=== PATIENT | male | born 1955 | race African-American/Black ===

== ENCOUNTER 2016-10-28 08:48 | Outpatient (CLI) | payer OTHER ==
[~2016-10-28 08:48] MED LIST: CYCLOPHOSPHAMIDE IV PRN; MESNA IV PRN; NORMAL SALINE 1000 ML 1,000 ML IV PRN; NORMAL SALINE IV PRN; ONDANSETRON HCL INJ/PF 4 MG/2 ML SDV IV PRN
[2016-10-28 10:36] VITALS: BP 142/70
[2016-10-28] MEDS ORDERED: HEPARIN SOD (PORCINE) 1,000 UNIT/ML 10 ML VIAL IV PRN (13:15)
== END 2016-10-28 17:58 | disposition home or self-care (01) ==
LOC: II 08:48 → 5TH 08:55 → II 17:58
PROVIDERS: ATTEND Internal Medicine Nephrology
PROC: 3E04305 Introduction of Other Antineoplastic into Central Vein, Percutaneous Approach (ICD-10-PCS; principal; 2016-10-28)
PROC: 3E0437Z Introduction of Electrolytic and Water Balance Substance into Central Vein, Percutaneous Approach (ICD-10-PCS; 2016-10-28)
DX: I77.89 Other specified disorders of arteries and arterioles (principal)
CPT/HCPCS: 96413; 96417; 96361; J9070; J1644; J9209; J7050; 96360; 96415

== ENCOUNTER 2016-12-04 07:52 | Outpatient (CLI) | payer OTHER ==
[2016-12-04] MEDS ORDERED: NORMAL SALINE IV PRN ×3 (08:08→08:14)
[2016-12-04] MEDS ORDERED: CYCLOPHOSPHAMIDE IV PRN (08:08)
[2016-12-04] MEDS ORDERED: MESNA IV PRN ×2 (08:12→08:14)
[2016-12-04] MEDS ORDERED: NORMAL SALINE 1000 ML 1,000 ML IV PRN (08:17)
[2016-12-04 08:21] VITALS: BP 127/68
[2016-12-04] MEDS ORDERED: ONDANSETRON HCL INJ/PF 4 MG/2 ML SDV IV PRN (08:27)
[2016-12-04] MEDS ORDERED: HEPARIN SOD (PORCINE) 1,000 UNIT/ML 10 ML VIAL IV PRN ×2 (08:35→08:36)
== END 2016-12-04 15:29 | disposition home or self-care (01) ==
LOC: 5TH 07:52 → II 07:52
PROVIDERS: ATTEND Internal Medicine Nephrology
PROC: 3E0437Z Introduction of Electrolytic and Water Balance Substance into Central Vein, Percutaneous Approach (ICD-10-PCS; principal; 2016-12-04)
PROC: 3E043GC Introduction of Other Therapeutic Substance into Central Vein, Percutaneous Approach (ICD-10-PCS; 2016-12-04)
PROC: 3E043GC Introduction of Other Therapeutic Substance into Central Vein, Percutaneous Approach (ICD-10-PCS; 2016-12-04)
PROC: 3E04305 Introduction of Other Antineoplastic into Central Vein, Percutaneous Approach (ICD-10-PCS; 2016-12-04)
DX: I77.6 Arteritis, unspecified (principal)
CPT/HCPCS: 96413; 96367; 96375; 96361; J9070; J1644; J9209; J2405; J7050; 96360; 96415

== ENCOUNTER → 2016-12-21 | Outpatient (CLI) | payer OTHER ==
--- NOTE | 2016-12-21 19:20 | XCELERA REPORT ---
[address] [address] Transthoracic Echocardiogram Report Name: TEETEE TOUSSAINT Age: 61 yrs Gender: Male : 1955 Patient Status: Outpatient Patient Location: Study Date: 12/21/2016 01:02 PM Height: 74 in Weight: 232 lb BSA: 2.3 m2 Reason For Study: CAD I25.10 Ordering Physician: YANNICK MORALES Performed By: Vinnie Yin Interpretation Summary MIn posterior pericardial effusion. aortic valve sclerosis, no , no AR, Mitral vlave leaflet thickened, no MS, mild MR and no LA enlargement. LVH concentric hypertrophy mild. LVEF 50 low normal, mild LV enlargement, stage I LV diastolic dysfunction.Diffuse hypokinesis except for post wall. No granulomas RV normal, mild TR with no pulm hypertension, RVSP26. MMode/2D Measurements \T\ Calculations RVDd: 3.2 cm LVIDd: 5.8 cm FS: 24.0 % Ao root diam: 3.1 cm IVSd: 1.2 cm LVIDs: 4.4 cm EDV(Teich): 163.8 ml LVPWd: 1.2 cm ESV(Teich): 86.7 ml Ao root area: 7.4 cm2 EF(Teich): 47.1 % LA dimension: 3.6 cm Doppler Measurements \T\ Calculations MV E max josey: MV P1/2t max josey: Ao V2 max: LV V1 max P.6 cm/sec 36.4 cm/sec 110.1 cm/sec 1.6 mmHg MV A max josey: MV P1/2t: 46.2 msec Ao max PG: LV V1 max: 48.0 cm/sec 4.9 mmHg 63.5 cm/sec MV E/A: 0.76 MVA(P1/2t): 4.8 cm2 MV dec slope: 230.4 cm/sec2 MV dec time: 0.17 sec PA V2 max: TR max josey: RAP systole: 70.6 cm/sec 202.2 cm/sec 10.0 mmHg PA max PG: TR max P.4 mmHg 2.0 mmHg RVSP(TR): 26.4 mmHg Left Ventricle The left ventricle is mildly dilated. There is mild concentric left ventricular hypertrophy. Left ventricular systolic function is low normal. The Ejection Fraction estimate is 50-55%. Doppler measurements suggest impaired left ventricular relaxation, which is associated with grade I/IV or mild diastolic dysfunction. There is mild to moderate global hypokinesis of the left ventricle. There is no thrombus. Right Ventricle The right ventricle is normal in size, thickness and function. Atria The right atrium is normal. The left atrial size is normal. The interatrial septum is intact with no evidence for an atrial septal defect. Mitral Valve The mitral valve leaflets are sclerotic and show some degree of functional abnormality. There is no mitral annular calcification. There is no evidence of mitral valve prolapse. There is no vegetation seen on the mitral valve. There is no mitral valve stenosis. There is a mild amount of mitral regurgitation. The mitral regurgitant jet is eccentrically directed. Aortic Valve The aortic valve opens well. The aortic valve is sclerotic and shows some degree of functional abnormality. The aortic valve is trileaflet. There is no aortic valvular vegetation. There is no aortic valve stenosis. No aortic regurgitation is present. Tricuspid Valve There is a trace to mild amount of tricuspid regurgitation. Right ventricular systolic pressure is normal. Pulmonic Valve The pulmonic valve is normal in structure and function. There is a trace or physiologic amount of pulmonic regurgitation. Great Vessels There is aortic root sclerosis/calcification. The aortic root is normal size. Effusions Minimal pericardial effusion. I WMSI = 1.81 % Normal = 19 Segments Size X - Cannot 1 - Normal 2 - 3 - Akinetic4 - 1-2 small Interpret Hypokinetic Dyskinetic 3-5 moderate 5 - 6-14 large Aneurysmal 15-16 diffuse : YANNICK MORALES > Yannick Morales
== END ==
LOC: SP 12:50
PROVIDERS: ATTEND Internal Medicine Cardiovascular Disease
DX: I25.10 Atherosclerotic heart disease of native coronary artery without angina pectoris (principal)
CPT/HCPCS: 93306

== ENCOUNTER 2016-12-30 08:15 | Outpatient (CLI) | payer MEDICARE, OTHER ==
[~2016-12-30 08:15] MED LIST changes: +HEPARIN SOD (PORCINE) 1,000 UNIT/ML 10 ML VIAL IV PRN; -NORMAL SALINE 1000 ML 1,000 ML IV PRN
[2016-12-30 09:11] VITALS: BP 117/68
[2016-12-30] MEDS ORDERED: NORMAL SALINE 1000 ML 1,000 ML IV PRN (09:26)
== END 2016-12-30 16:17 | disposition home or self-care (01) ==
LOC: II 08:15 → 5TH 08:17 → II 16:17
PROVIDERS: ATTEND Internal Medicine Nephrology
PROC: 3E04305 Introduction of Other Antineoplastic into Central Vein, Percutaneous Approach (ICD-10-PCS; principal; 2016-12-30)
PROC: 3E043GC Introduction of Other Therapeutic Substance into Central Vein, Percutaneous Approach (ICD-10-PCS; 2016-12-30)
PROC: 3E0437Z Introduction of Electrolytic and Water Balance Substance into Central Vein, Percutaneous Approach (ICD-10-PCS; 2016-12-30)
DX: I77.6 Arteritis, unspecified (principal)
CPT/HCPCS: 96413; 96367; 96361; J9070; J1644; J9209; J7050; 96360; 96375; 96415

== ENCOUNTER → 2017-01-25 | Outpatient (CLI) | payer MEDICARE, OTHER ==
[2017-01-25 13:26] LABS: ALANINE AMINOTRANSFERASE 24 U/L (21-72); ALBUMIN 3.8 g/dL (3.5-5.0); ALKALINE PHOSPHATASE 65 U/L (38-126); ASPARTATE AMINO TRANSFERASE 15 U/L (17-59); BILIRUBIN,DIRECT 0.2 mg/dL (0.0-0.4); BILIRUBIN,TOTAL 0.7 mg/dL (0.2-1.3); CHOLESTEROL 167.15 mg/dL (0-200); Direct HDL 43 mg/dL (>40); TOTAL PROTEIN 6.1 g/dL (6.3-8.2); TRIGLYCERIDES 191 mg/dL (<150)
[2017-01-25 13:40] LABS: DIRECT LDL 69 mg/dL (<100)
[2017-01-25 13:42] LABS: VLDL CHOLESTEROL 38.2 mg/dL (10-31)
== END ==
LOC: OD 11:31
PROVIDERS: ATTEND Internal Medicine Cardiovascular Disease
DX: E78.2 Mixed hyperlipidemia (principal); Z79.899 Other long term (current) drug therapy
CPT/HCPCS: 36415; 80061; 80076; 84443

== ENCOUNTER 2017-01-27 08:14 | Outpatient (CLI) | payer MEDICARE, OTHER ==
[~2017-01-27 08:14] MED LIST changes: -HEPARIN SOD (PORCINE) 1,000 UNIT/ML 10 ML VIAL IV PRN; +NORMAL SALINE 1000 ML 1,000 ML IV PRN
[2017-01-27] MEDS ORDERED: HEPARIN SOD (PORCINE) 1,000 UNIT/ML 10 ML VIAL INJ PRN ×3 (08:49→14:43)
[2017-01-27 08:56] VITALS: BP 134/69
== END 2017-01-27 17:00 | disposition home or self-care (01) ==
LOC: II 08:14 → 5TH 08:18 → II 17:00
PROVIDERS: ATTEND Internal Medicine Nephrology
PROC: 3E033GC Introduction of Other Therapeutic Substance into Peripheral Vein, Percutaneous Approach (ICD-10-PCS; principal; 2017-01-27)
PROC: 3E0337Z Introduction of Electrolytic and Water Balance Substance into Peripheral Vein, Percutaneous Approach (ICD-10-PCS; 2017-01-27)
PROC: 3E03305 Introduction of Other Antineoplastic into Peripheral Vein, Percutaneous Approach (ICD-10-PCS; 2017-01-27)
DX: I77.6 Arteritis, unspecified (principal)
CPT/HCPCS: 96413; 96367; 96361; J9070; J1644; J9209; J7050; 96360; 96375; 96415

== ENCOUNTER → 2017-04-09 | Outpatient (CLI) | payer MEDICARE, OTHER ==
[2017-04-09 10:36] LABS: ANION GAP 12 (5-19); BLOOD UREA NITROGEN 43 mg/dL (7-20); CALCIUM 9.7 mg/dL (8.4-10.2); CARBON DIOXIDE 22 mmol/L (22-30); CHLORIDE 107 mmol/L (98-107); CREATININE RESULT 3.47 mg/dL (0.52-1.25); GLUCOSE 86 mg/dL (75-110); POTASSIUM 5.5 mmol/L (3.6-5.0); SODIUM 141.3 mmol/L (137-145)
== END ==
LOC: OD 08:38
PROVIDERS: ATTEND Internal Medicine Nephrology
DX: N18.6 End stage renal disease (principal)
CPT/HCPCS: 36415; 80048

== ENCOUNTER → 2017-04-12 | Outpatient (CLI) | payer MEDICARE, OTHER ==
[2017-04-12 10:25] LABS: ANION GAP 14 (5-19); BLOOD UREA NITROGEN 47 mg/dL (7-20); CALCIUM 9.8 mg/dL (8.4-10.2); CARBON DIOXIDE 21 mmol/L (22-30); CHLORIDE 108 mmol/L (98-107); CREATININE RESULT 2.86 mg/dL (0.52-1.25); GLUCOSE 87 mg/dL (75-110); SODIUM 143.3 mmol/L (137-145)
== END ==
LOC: OD 09:03
PROVIDERS: ATTEND Internal Medicine Nephrology
DX: N18.6 End stage renal disease (principal)
CPT/HCPCS: 36415; 80048

== ENCOUNTER → 2017-04-14 | Outpatient (CLI) | payer MEDICARE, OTHER ==
[2017-04-14 09:24] LABS: ANION GAP 13 (5-19); BLOOD UREA NITROGEN 51 mg/dL (7-20); CALCIUM 9.8 mg/dL (8.4-10.2); CARBON DIOXIDE 22 mmol/L (22-30); CHLORIDE 108 mmol/L (98-107); CREATININE RESULT 3.28 mg/dL (0.52-1.25); GLUCOSE 96 mg/dL (75-110); SODIUM 143.2 mmol/L (137-145)
== END ==
LOC: OD 07:58
PROVIDERS: ATTEND Internal Medicine Nephrology
DX: N18.6 End stage renal disease (principal)
CPT/HCPCS: 36415; 80048

== ENCOUNTER → 2017-04-21 | Outpatient (CLI) | payer MEDICARE, OTHER ==
[2017-04-21 14:14] LABS: ABSOLUTE LYMPHOCYTES (AUTO) 0.6 10^3/uL (0.5-4.7); ABSOLUTE MONOCYTES (AUTO) 0.5 10^3/uL (0.1-1.4); ABSOLUTE NEUT (AUTO) 3.8 10^3/uL (1.7-8.2); BASOPHILS % (AUTO) 0.8 % (0-2); EOSINOPHILS % (AUTO) 0.8 % (0-6); HEMATOCRIT 36.4 % (37.9-51.0); HEMOGLOBIN 11.6 g/dL (13.5-17.0); HGB HCT DIFFERENCE -1.6; LYMPHOCYTES % (AUTO) 11.5 % (13-45); MEAN CORPUSCULAR VOLUME 91 fl (80-97); MONOCYTES % (AUTO) 9.6 % (3-13); RED BLOOD COUNT 4.02 10^6/uL (4.35-5.55); RED CELL DISTRIBUTION WIDTH 15.5 % (11.5-14.0); SEGMENTED NEUTROPHILS % (AUTO) 77.3 % (42-78); WHITE BLOOD COUNT 4.9 10^3/uL (4.0-10.5)
[2017-04-21 14:27] LABS: URINE CREATININE 128.6 mg/dL (22-328); URINE PROTEIN 40.2 mg/dL (<12)
[2017-04-21 14:34] LABS: ANION GAP 12 (5-19); BLOOD UREA NITROGEN 35 mg/dL (7-20); CALCIUM 9.7 mg/dL (8.4-10.2); CARBON DIOXIDE 24 mmol/L (22-30); CHLORIDE 109 mmol/L (98-107); CREATININE RESULT 2.42 mg/dL (0.52-1.25); GLUCOSE 85 mg/dL (75-110); PHOSPHORUS 4.6 mg/dL (2.5-4.5); POTASSIUM 4.4 mmol/L (3.6-5.0); SODIUM 144.9 mmol/L (137-145)
[2017-04-21 14:41] LABS: APPEARANCE,URINE CLEAR; BILIRUBIN,URINE NEGATIVE (NEGATIVE); GLUCOSE, URINE NEGATIVE (NEGATIVE); KETONES,URINE NEGATIVE (NEGATIVE); LEUKOCYTE ESTERASE,URINE NEGATIVE (NEGATIVE); NITRITE,URINE NEGATIVE (NEGATIVE); PROTEIN,URINE 30 mg/dL (NEGATIVE); URINE SPECIFIC GRAVITY 1.009; UROBILINOGEN,URINE NEGATIVE mg/dL (<2.0)
== END ==
LOC: OD 12:40
PROVIDERS: ATTEND Internal Medicine Nephrology
DX: I12.9 Hypertensive chronic kidney disease with stage 1 through stage 4 chronic kidney disease, or unspecified chronic kidney disease (principal); N18.4 Chronic kidney disease, stage 4 (severe); E83.39 Other disorders of phosphorus metabolism
CPT/HCPCS: 36415; 80048; 81001; 82570; 84100; 84156; 85025

== ENCOUNTER → 2017-05-05 | Outpatient (CLI) | payer MEDICARE, OTHER ==
[2017-05-05 09:10] LABS: ABSOLUTE EOSINOPHILS # (AUTO) 0.1 10^3/uL (0.0-0.6); ABSOLUTE LYMPHOCYTES (AUTO) 0.6 10^3/uL (0.5-4.7); ABSOLUTE MONOCYTES (AUTO) 0.6 10^3/uL (0.1-1.4); ABSOLUTE NEUT (AUTO) 4.4 10^3/uL (1.7-8.2); BASOPHILS % (AUTO) 0.4 % (0-2); EOSINOPHILS % (AUTO) 0.9 % (0-6); HEMATOCRIT 34.8 % (37.9-51.0); HEMOGLOBIN 11.2 g/dL (13.5-17.0); HGB HCT DIFFERENCE -1.2; LYMPHOCYTES % (AUTO) 10.7 % (13-45); MEAN CORPUSCULAR HEMOGLOBIN 28.7 pg (27.0-33.4); MEAN CORPUSCULAR HGB CONC 32.1 g/dL (32.0-36.0); MEAN CORPUSCULAR VOLUME 90 fl (80-97); RED BLOOD COUNT 3.88 10^6/uL (4.35-5.55); RED CELL DISTRIBUTION WIDTH 15.5 % (11.5-14.0); WHITE BLOOD COUNT 5.6 10^3/uL (4.0-10.5)
[2017-05-05 09:34] LABS: ANION GAP 13 (5-19); BLOOD UREA NITROGEN 30 mg/dL (7-20); CALCIUM 8.7 mg/dL (8.4-10.2); CARBON DIOXIDE 23 mmol/L (22-30); CHLORIDE 110 mmol/L (98-107); CREATININE RESULT 2.23 mg/dL (0.52-1.25); GLUCOSE 85 mg/dL (75-110); POTASSIUM 3.7 mmol/L (3.6-5.0); SODIUM 145.5 mmol/L (137-145)
== END ==
LOC: OD 08:18
PROVIDERS: ATTEND Internal Medicine Nephrology
DX: N18.4 Chronic kidney disease, stage 4 (severe) (principal); D63.8 Anemia in other chronic diseases classified elsewhere
CPT/HCPCS: 36415; 80048; 85025

== ENCOUNTER → 2017-06-11 | Outpatient (CLI) | payer MEDICARE, OTHER ==
[2017-06-11 09:20] LABS: ABSOLUTE EOSINOPHILS # (AUTO) 0.1 10^3/uL (0.0-0.6); ABSOLUTE LYMPHOCYTES (AUTO) 0.7 10^3/uL (0.5-4.7); ABSOLUTE MONOCYTES (AUTO) 0.5 10^3/uL (0.1-1.4); BASOPHILS % (AUTO) 0.8 % (0-2); EOSINOPHILS % (AUTO) 1.9 % (0-6); HEMATOCRIT 32.3 % (37.9-51.0); HEMOGLOBIN 10.9 g/dL (13.5-17.0); HGB HCT DIFFERENCE 0.4; LYMPHOCYTES % (AUTO) 15.6 % (13-45); MEAN CORPUSCULAR HEMOGLOBIN 28.8 pg (27.0-33.4); MEAN CORPUSCULAR HGB CONC 33.7 g/dL (32.0-36.0); MEAN CORPUSCULAR VOLUME 86 fl (80-97); MONOCYTES % (AUTO) 11.8 % (3-13); RED BLOOD COUNT 3.77 10^6/uL (4.35-5.55); RED CELL DISTRIBUTION WIDTH 14.9 % (11.5-14.0); SEGMENTED NEUTROPHILS % (AUTO) 69.9 % (42-78); WHITE BLOOD COUNT 4.3 10^3/uL (4.0-10.5)
[2017-06-11 09:21] LABS: APPEARANCE,URINE CLEAR; BILIRUBIN,URINE NEGATIVE (NEGATIVE); GLUCOSE, URINE NEGATIVE (NEGATIVE); KETONES,URINE NEGATIVE (NEGATIVE); LEUKOCYTE ESTERASE,URINE NEGATIVE (NEGATIVE); NITRITE,URINE NEGATIVE (NEGATIVE); PROTEIN,URINE 30 mg/dL (NEGATIVE); URINE SPECIFIC GRAVITY 1.006; UROBILINOGEN,URINE NEGATIVE mg/dL (<2.0)
[2017-06-11 09:44] LABS: ALBUMIN 3.9 g/dL (3.5-5.0); ANION GAP 12 (5-19); BLOOD UREA NITROGEN 36 mg/dL (7-20); CALCIUM 9.5 mg/dL (8.4-10.2); CARBON DIOXIDE 24 mmol/L (22-30); CHLORIDE 107 mmol/L (98-107); CREATININE RESULT 2.93 mg/dL (0.52-1.25); GLUCOSE 90 mg/dL (75-110); PHOSPHORUS 4.4 mg/dL (2.5-4.5); POTASSIUM 3.9 mmol/L (3.6-5.0)
[2017-06-11 09:57] LABS: URINE CREATININE 62.2 mg/dL (22-328); URINE PROTEIN 46.3 mg/dL (<12)
[2017-06-12 08:42] LABS: PTH INTACT 118 pg/mL (15-65)
[2017-06-12 08:49] LABS: VITAMIN D 25-HYDROXY 24.8 ng/mL (30.0-100.0)
[2017-06-15 18:37] LABS: ANTIPROTEINASE 3 (PR-3) AB <3.5 U/mL (0.0-3.5); CYTOPLASMIC (C-ANCA) <1:20 titer (Neg:<1:20)
== END ==
LOC: OD 07:53
PROVIDERS: ATTEND Internal Medicine Nephrology
DX: I77.6 Arteritis, unspecified (principal); N18.4 Chronic kidney disease, stage 4 (severe); D63.1 Anemia in chronic kidney disease; E83.39 Other disorders of phosphorus metabolism
CPT/HCPCS: 36415; 80048; 81001; 82040; 82306; 82570; 83516; 83970; 84100; 84156; 85025; 86256

== ENCOUNTER → 2017-08-16 | Outpatient (CLI) | payer MEDICARE, OTHER ==
[2017-08-16 10:59] LABS: ABSOLUTE EOSINOPHILS # (AUTO) 0.1 10^3/uL (0.0-0.6); ABSOLUTE LYMPHOCYTES (AUTO) 0.7 10^3/uL (0.5-4.7); ABSOLUTE MONOCYTES (AUTO) 0.6 10^3/uL (0.1-1.4); ABSOLUTE NEUT (AUTO) 3.2 10^3/uL (1.7-8.2); BASOPHILS % (AUTO) 0.9 % (0-2); EOSINOPHILS % (AUTO) 2.6 % (0-6); HEMATOCRIT 29.3 % (37.9-51.0); HEMOGLOBIN 10.1 g/dL (13.5-17.0); LYMPHOCYTES % (AUTO) 14.3 % (13-45); MEAN CORPUSCULAR HEMOGLOBIN 28.9 pg (27.0-33.4); MEAN CORPUSCULAR HGB CONC 34.6 g/dL (32.0-36.0); MEAN CORPUSCULAR VOLUME 83 fl (80-97); MONOCYTES % (AUTO) 12.1 % (3-13); RED BLOOD COUNT 3.51 10^6/uL (4.35-5.55); RED CELL DISTRIBUTION WIDTH 15.7 % (11.5-14.0); SEGMENTED NEUTROPHILS % (AUTO) 70.1 % (42-78); WHITE BLOOD COUNT 4.6 10^3/uL (4.0-10.5)
[2017-08-16 11:21] LABS: ANION GAP 12 (5-19); BLOOD UREA NITROGEN 24 mg/dL (7-20); CALCIUM 9.5 mg/dL (8.4-10.2); CARBON DIOXIDE 27 mmol/L (22-30); CHLORIDE 107 mmol/L (98-107); CREATININE RESULT 2.66 mg/dL (0.52-1.25); GLUCOSE 93 mg/dL (75-110); POTASSIUM 4.4 mmol/L (3.6-5.0); SODIUM 146.4 mmol/L (137-145)
[2017-08-16 11:36] LABS: APPEARANCE,URINE CLEAR; BILIRUBIN,URINE NEGATIVE (NEGATIVE); GLUCOSE, URINE NEGATIVE (NEGATIVE); KETONES,URINE NEGATIVE (NEGATIVE); LEUKOCYTE ESTERASE,URINE NEGATIVE (NEGATIVE); NITRITE,URINE NEGATIVE (NEGATIVE); PROTEIN,URINE 30 mg/dL (NEGATIVE); URINE SPECIFIC GRAVITY 1.008; UROBILINOGEN,URINE NEGATIVE mg/dL (<2.0)
[2017-08-16 11:47] LABS: URINE CREATININE 101.7 mg/dL (22-328); URINE PROTEIN 49.1 mg/dL (<12)
[2017-08-17 07:43] LABS: VITAMIN D 25-HYDROXY 43.4 ng/mL (30.0-100.0)
== END ==
LOC: OD 09:52
PROVIDERS: ATTEND Internal Medicine Nephrology
DX: N05.9 Unspecified nephritic syndrome with unspecified morphologic changes (principal); N18.4 Chronic kidney disease, stage 4 (severe); D63.8 Anemia in other chronic diseases classified elsewhere; E55.9 Vitamin D deficiency, unspecified; N25.81 Secondary hyperparathyroidism of renal origin
CPT/HCPCS: 36415; 80048; 81001; 82306; 82570; 82728; 83540; 83550; 83970; 84156; 85025

== ENCOUNTER → 2017-11-19 | Outpatient (CLI) | payer MEDICARE, OTHER ==
[2017-11-19 12:11] LABS: ABSOLUTE BASOPHILS # (AUTO) 0.1 10^3/uL (0.0-0.2); ABSOLUTE EOSINOPHILS # (AUTO) 0.1 10^3/uL (0.0-0.6); ABSOLUTE LYMPHOCYTES (AUTO) 0.8 10^3/uL (0.5-4.7); ABSOLUTE MONOCYTES (AUTO) 0.7 10^3/uL (0.1-1.4); ABSOLUTE NEUT (AUTO) 3.8 10^3/uL (1.7-8.2); EOSINOPHILS % (AUTO) 1.9 % (0-6); HEMATOCRIT 33.3 % (37.9-51.0); HEMOGLOBIN 11.1 g/dL (13.5-17.0); LYMPHOCYTES % (AUTO) 15.2 % (13-45); MEAN CORPUSCULAR HEMOGLOBIN 28.6 pg (27.0-33.4); MEAN CORPUSCULAR HGB CONC 33.4 g/dL (32.0-36.0); MEAN CORPUSCULAR VOLUME 86 fl (80-97); MONOCYTES % (AUTO) 12.3 % (3-13); PLATELET COUNT 202 10^3/uL (150-450); RED BLOOD COUNT 3.88 10^6/uL (4.35-5.55); RED CELL DISTRIBUTION WIDTH 15.6 % (11.5-14.0); SEGMENTED NEUTROPHILS % (AUTO) 69.6 % (42-78); TOTAL CELLS COUNTED % (AUTO) 100 %; WHITE BLOOD COUNT 5.5 10^3/uL (4.0-10.5)
[2017-11-19 12:28] LABS: APPEARANCE,URINE CLEAR; BILIRUBIN,URINE NEGATIVE (NEGATIVE); COLOR,URINE STRAW; GLUCOSE, URINE NEGATIVE (NEGATIVE); KETONES,URINE NEGATIVE (NEGATIVE); LEUKOCYTE ESTERASE,URINE NEGATIVE (NEGATIVE); NITRITE,URINE NEGATIVE (NEGATIVE); PROTEIN,URINE NEGATIVE (NEGATIVE); URINE SPECIFIC GRAVITY 1.009; UROBILINOGEN,URINE NEGATIVE mg/dL (<2.0)
[2017-11-19 12:40] LABS: ANION GAP 15 (5-19); BLOOD UREA NITROGEN 51 mg/dL (7-20); CALCIUM 10.6 mg/dL (8.4-10.2); CARBON DIOXIDE 24 mmol/L (22-30); CHLORIDE 107 mmol/L (98-107); GLUCOSE 97 mg/dL (75-110); POTASSIUM 4.8 mmol/L (3.6-5.0); SODIUM 145.9 mmol/L (137-145); URIC ACID 12.7 mg/dL (3.5-8.5)
[2017-11-19 12:49] LABS: UR PRO/CREAT RATIO RESULT 0.4 mg/mg (0.0-0.2); URINE CREATININE 72.4 mg/dL (22-328); URINE PROTEIN 32.2 mg/dL (<12)
== END ==
LOC: OD 11:14
PROVIDERS: ATTEND Internal Medicine Nephrology
DX: N18.3 Chronic kidney disease, stage 3 (moderate) (principal); R80.9 Proteinuria, unspecified; D63.8 Anemia in other chronic diseases classified elsewhere; M10.9 Gout, unspecified
CPT/HCPCS: 36415; 80048; 81001; 82570; 84156; 84550; 85025

== ENCOUNTER → 2018-01-25 | Outpatient (CLI) | payer MEDICARE, OTHER ==
[2018-01-25 13:57] LABS: ALANINE AMINOTRANSFERASE 57 U/L (21-72); ALBUMIN 4.4 g/dL (3.5-5.0); ALKALINE PHOSPHATASE 89 U/L (38-126); ASPARTATE AMINO TRANSFERASE 52 U/L (17-59); BILIRUBIN,DIRECT 0.7 mg/dL (0.0-0.4); BILIRUBIN,TOTAL 0.8 mg/dL (0.2-1.3); CHOLESTEROL 125.45 mg/dL (0-200); TOTAL PROTEIN 8.5 g/dL (6.3-8.2); TRIGLYCERIDES 109 mg/dL (<150)
[2018-01-25 14:09] LABS: DIRECT LDL 54 mg/dL (<100)
== END ==
LOC: OD 12:15
PROVIDERS: ATTEND Internal Medicine Cardiovascular Disease
DX: E78.2 Mixed hyperlipidemia (principal); Z79.899 Other long term (current) drug therapy
CPT/HCPCS: 36415; 80061; 80076; 84443

== ENCOUNTER → 2018-02-15 | Outpatient (CLI) | payer MEDICARE, OTHER ==
[2018-02-15 09:42] LABS: APPEARANCE,URINE CLEAR; BILIRUBIN,URINE NEGATIVE (NEGATIVE); COLOR,URINE STRAW; GLUCOSE, URINE NEGATIVE (NEGATIVE); KETONES,URINE NEGATIVE (NEGATIVE); LEUKOCYTE ESTERASE,URINE NEGATIVE (NEGATIVE); NITRITE,URINE NEGATIVE (NEGATIVE); PROTEIN,URINE NEGATIVE (NEGATIVE); URINE SPECIFIC GRAVITY 1.009; UROBILINOGEN,URINE NEGATIVE mg/dL (<2.0)
[2018-02-15 09:54] LABS: ABSOLUTE EOSINOPHILS # (AUTO) 0.1 10^3/uL (0.0-0.6); ABSOLUTE LYMPHOCYTES (AUTO) 0.8 10^3/uL (0.5-4.7); ABSOLUTE MONOCYTES (AUTO) 0.4 10^3/uL (0.1-1.4); ABSOLUTE NEUT (AUTO) 2.7 10^3/uL (1.7-8.2); BASOPHILS % (AUTO) 1.1 % (0-2); HEMATOCRIT 33.1 % (37.9-51.0); HEMOGLOBIN 11.1 g/dL (13.5-17.0); LYMPHOCYTES % (AUTO) 19.9 % (13-45); MEAN CORPUSCULAR HGB CONC 33.5 g/dL (32.0-36.0); MEAN CORPUSCULAR VOLUME 87 fl (80-97); PLATELET COUNT 184 10^3/uL (150-450); RED BLOOD COUNT 3.82 10^6/uL (4.35-5.55); RED CELL DISTRIBUTION WIDTH 14.9 % (11.5-14.0); TOTAL CELLS COUNTED % (AUTO) 100 %
[2018-02-15 10:15] LABS: ALBUMIN 4.2 g/dL (3.5-5.0); ANION GAP 13 (5-19); BLOOD UREA NITROGEN 27 mg/dL (7-20); CALCIUM 9.9 mg/dL (8.4-10.2); CARBON DIOXIDE 27 mmol/L (22-30); CHLORIDE 106 mmol/L (98-107); GLUCOSE 112 mg/dL (75-110); PHOSPHORUS 3.9 mg/dL (2.5-4.5); POTASSIUM 4.3 mmol/L (3.6-5.0); SODIUM 146.3 mmol/L (137-145); URIC ACID 8.2 mg/dL (3.5-8.5)
[2018-02-15 10:16] LABS: ALANINE AMINOTRANSFERASE 75 U/L (21-72); ALBUMIN 4.2 g/dL (3.5-5.0); ALKALINE PHOSPHATASE 99 U/L (38-126); ASPARTATE AMINO TRANSFERASE 46 U/L (17-59); BILIRUBIN,DIRECT 0.3 mg/dL (0.0-0.4); BILIRUBIN,TOTAL 0.5 mg/dL (0.2-1.3)
[2018-02-15 10:19] LABS: UR PRO/CREAT RATIO RESULT 0.5 mg/mg (0.0-0.2); URINE CREATININE 61.8 mg/dL (22-328); URINE PROTEIN 31.7 mg/dL (<12)
== END ==
LOC: OD 09:04
PROVIDERS: ATTEND Internal Medicine Cardiovascular Disease
DX: N18.4 Chronic kidney disease, stage 4 (severe) (principal); R94.5 Abnormal results of liver function studies; E55.9 Vitamin D deficiency, unspecified; M10.9 Gout, unspecified
CPT/HCPCS: 36415; 80048; 80076; 81001; 82040; 82306; 82570; 83970; 84100; 84156; 84550; 85025

== ENCOUNTER → 2018-05-19 | Outpatient (CLI) | payer OTHER ==
[2018-05-19 07:56] LABS: APPEARANCE,URINE CLEAR; BILIRUBIN,URINE NEGATIVE (NEGATIVE); COLOR,URINE STRAW; GLUCOSE, URINE NEGATIVE (NEGATIVE); KETONES,URINE NEGATIVE (NEGATIVE); LEUKOCYTE ESTERASE,URINE NEGATIVE (NEGATIVE); NITRITE,URINE NEGATIVE (NEGATIVE); PROTEIN,URINE 30 mg/dL (NEGATIVE); UROBILINOGEN,URINE NEGATIVE mg/dL (<2.0)
[2018-05-19 08:21] LABS: ANION GAP 14 (5-19); BLOOD UREA NITROGEN 33 mg/dL (7-20); CALCIUM 9.5 mg/dL (8.4-10.2); CARBON DIOXIDE 24 mmol/L (22-30); CHLORIDE 109 mmol/L (98-107); GLUCOSE 99 mg/dL (75-110); SODIUM 147.4 mmol/L (137-145)
[2018-05-19 08:31] LABS: UR PRO/CREAT RATIO RESULT 0.6 mg/mg (0.0-0.2); URINE CREATININE 71.4 mg/dL (22-328); URINE PROTEIN 46.3 mg/dL (<12)
== END ==
LOC: OD 07:19
PROVIDERS: ATTEND Internal Medicine Nephrology
DX: N18.4 Chronic kidney disease, stage 4 (severe) (principal); E55.9 Vitamin D deficiency, unspecified; N25.81 Secondary hyperparathyroidism of renal origin; R80.9 Proteinuria, unspecified
CPT/HCPCS: 36415; 80048; 81001; 82306; 82570; 83970; 84156

== ENCOUNTER → 2018-08-23 | Outpatient (CLI) | payer OTHER ==
[2018-08-23 09:28] LABS: ABSOLUTE EOSINOPHILS # (AUTO) 0.1 10^3/uL (0.0-0.6); ABSOLUTE MONOCYTES (AUTO) 0.5 10^3/uL (0.1-1.4); ABSOLUTE NEUT (AUTO) 3.3 10^3/uL (1.7-8.2); BASOPHILS % (AUTO) 0.8 % (0-2); EOSINOPHILS % (AUTO) 1.6 % (0-6); HEMATOCRIT 36.8 % (37.9-51.0); HEMOGLOBIN 12.6 g/dL (13.5-17.0); LYMPHOCYTES % (AUTO) 19.5 % (13-45); MEAN CORPUSCULAR HEMOGLOBIN 29.8 pg (27.0-33.4); MEAN CORPUSCULAR HGB CONC 34.1 g/dL (32.0-36.0); MEAN CORPUSCULAR VOLUME 87 fl (80-97); PLATELET COUNT 161 10^3/uL (150-450); RED BLOOD COUNT 4.21 10^6/uL (4.35-5.55); RED CELL DISTRIBUTION WIDTH 14.5 % (11.5-14.0); SEGMENTED NEUTROPHILS % (AUTO) 67.1 % (42-78); TOTAL CELLS COUNTED % (AUTO) 100 %; WHITE BLOOD COUNT 4.9 10^3/uL (4.0-10.5)
[2018-08-23 09:34] LABS: APPEARANCE,URINE CLEAR; BILIRUBIN,URINE NEGATIVE (NEGATIVE); COLOR,URINE STRAW; GLUCOSE, URINE NEGATIVE (NEGATIVE); KETONES,URINE NEGATIVE (NEGATIVE); LEUKOCYTE ESTERASE,URINE NEGATIVE (NEGATIVE); NITRITE,URINE NEGATIVE (NEGATIVE); PROTEIN,URINE 30 mg/dL (NEGATIVE); UROBILINOGEN,URINE NEGATIVE mg/dL (<2.0)
[2018-08-23 09:46] LABS: ALBUMIN 4.5 g/dL (3.5-5.0); ANION GAP 14 (5-19); BLOOD UREA NITROGEN 34 mg/dL (7-20); CARBON DIOXIDE 26 mmol/L (22-30); CHLORIDE 105 mmol/L (98-107); GLUCOSE 94 mg/dL (75-110); PHOSPHORUS 3.8 mg/dL (2.5-4.5); POTASSIUM 4.6 mmol/L (3.6-5.0); SODIUM 145.3 mmol/L (137-145)
[2018-08-23 09:57] LABS: UR PRO/CREAT RATIO RESULT 0.7 mg/mg (0.0-0.2)
== END ==
LOC: OD 08:39
PROVIDERS: ATTEND Internal Medicine Nephrology
DX: N18.4 Chronic kidney disease, stage 4 (severe) (principal); D63.8 Anemia in other chronic diseases classified elsewhere; N25.81 Secondary hyperparathyroidism of renal origin
CPT/HCPCS: 36415; 80048; 81001; 82040; 82306; 82570; 83970; 84100; 84156; 85025

== ENCOUNTER → 2018-08-25 | Outpatient (CLI) | payer OTHER ==
[2018-08-25 12:47] LABS: ALANINE AMINOTRANSFERASE 38 U/L (21-72); ALBUMIN 4.1 g/dL (3.5-5.0); ALKALINE PHOSPHATASE 101 U/L (38-126); ASPARTATE AMINO TRANSFERASE 34 U/L (17-59); BILIRUBIN,DIRECT 0.2 mg/dL (0.0-0.4); BILIRUBIN,TOTAL 0.7 mg/dL (0.2-1.3); CHOLESTEROL 121.08 mg/dL (0-200); TRIGLYCERIDES 140 mg/dL (<150)
[2018-08-25 12:58] LABS: DIRECT LDL 67 mg/dL (<100)
== END ==
LOC: OD 11:37
PROVIDERS: ATTEND Internal Medicine Cardiovascular Disease
DX: I25.10 Atherosclerotic heart disease of native coronary artery without angina pectoris (principal); R94.5 Abnormal results of liver function studies
CPT/HCPCS: 36415; 80061; 80076

== ENCOUNTER → 2018-11-30 | Outpatient (CLI) | payer OTHER ==
[2018-11-30 14:57] LABS: ABSOLUTE BASOPHILS # (AUTO) 0.1 10^3/uL (0.0-0.2); ABSOLUTE LYMPHOCYTES (AUTO) 1.9 10^3/uL (0.5-4.7); ABSOLUTE MONOCYTES (AUTO) 0.7 10^3/uL (0.1-1.4); ABSOLUTE NEUT (AUTO) 10.9 10^3/uL (1.7-8.2); BASOPHILS % (AUTO) 0.7 % (0-2); EOSINOPHILS % (AUTO) 0.1 % (0-6); HEMATOCRIT 41.8 % (37.9-51.0); HEMOGLOBIN 13.9 g/dL (13.5-17.0); LYMPHOCYTES % (AUTO) 13.7 % (13-45); MEAN CORPUSCULAR HEMOGLOBIN 29.6 pg (27.0-33.4); MEAN CORPUSCULAR HGB CONC 33.3 g/dL (32.0-36.0); MEAN CORPUSCULAR VOLUME 89 fl (80-97); PLATELET COUNT 187 10^3/uL (150-450); RED CELL DISTRIBUTION WIDTH 15.9 % (11.5-14.0); SEGMENTED NEUTROPHILS % (AUTO) 80.5 % (42-78); TOTAL CELLS COUNTED % (AUTO) 100 %; WHITE BLOOD COUNT 13.6 10^3/uL (4.0-10.5)
[2018-11-30 15:21] LABS: ALANINE AMINOTRANSFERASE 150 U/L (21-72); ALBUMIN 4.1 g/dL (3.5-5.0); ALKALINE PHOSPHATASE 93 U/L (38-126); ANION GAP 7 (5-19); ASPARTATE AMINO TRANSFERASE 60 U/L (17-59); BILIRUBIN,DIRECT 0.1 mg/dL (0.0-0.4); BILIRUBIN,TOTAL 0.7 mg/dL (0.2-1.3); BLOOD UREA NITROGEN 39 mg/dL (7-20); CALCIUM 9.9 mg/dL (8.4-10.2); CARBON DIOXIDE 27 mmol/L (22-30); CHLORIDE 110 mmol/L (98-107); CHOLESTEROL 161.04 mg/dL (0-200); GLUCOSE 102 mg/dL (75-110); POTASSIUM 4.3 mmol/L (3.6-5.0); SODIUM 144.4 mmol/L (137-145); TOTAL PROTEIN 6.8 g/dL (6.3-8.2); TRIGLYCERIDES 77 mg/dL (<150)
[2018-11-30 15:31] LABS: DIRECT LDL 80 mg/dL (<100)
[2018-11-30 15:52] LABS: UR PRO/CREAT RATIO RESULT 0.7 mg/mg (0.0-0.2); URINE CREATININE 86.6 mg/dL (22-328); URINE PROTEIN 56.3 mg/dL (<12)
[2018-11-30 17:19] LABS: ANION GAP 7 (5-19); BLOOD UREA NITROGEN 39 mg/dL (7-20); CALCIUM 9.9 mg/dL (8.4-10.2); CARBON DIOXIDE 27 mmol/L (22-30); CHLORIDE 110 mmol/L (98-107); GLUCOSE 102 mg/dL (75-110); POTASSIUM 4.3 mmol/L (3.6-5.0); SODIUM 144.4 mmol/L (137-145)
== END ==
LOC: OD 14:18
PROVIDERS: ATTEND Internal Medicine Nephrology
DX: I12.9 Hypertensive chronic kidney disease with stage 1 through stage 4 chronic kidney disease, or unspecified chronic kidney disease (principal); N18.3 Chronic kidney disease, stage 3 (moderate); D64.9 Anemia, unspecified; R80.9 Proteinuria, unspecified; E78.2 Mixed hyperlipidemia; Z79.899 Other long term (current) drug therapy; E11.22 Type 2 diabetes mellitus with diabetic chronic kidney disease; D86.1 Sarcoidosis of lymph nodes
CPT/HCPCS: 36415; 80048; 80061; 80076; 82306; 82570; 83036; 83735; 83970; 84156; 84443; 85025

== ENCOUNTER → 2019-02-24 | Outpatient (CLI) | payer OTHER ==
[2019-02-24 12:01] LABS: ANION GAP 9 (5-19); BLOOD UREA NITROGEN 46 mg/dL (7-20); CARBON DIOXIDE 29 mmol/L (22-30); CHLORIDE 104 mmol/L (98-107); GLUCOSE 142 mg/dL (75-110); POTASSIUM 4.2 mmol/L (3.6-5.0); SODIUM 141.7 mmol/L (137-145)
== END ==
LOC: OD 10:16
PROVIDERS: ATTEND Internal Medicine Cardiovascular Disease
DX: E11.9 Type 2 diabetes mellitus without complications (principal); E83.42 Hypomagnesemia; E03.9 Hypothyroidism, unspecified; R00.2 Palpitations; I50.22 Chronic systolic (congestive) heart failure; R06.02 Shortness of breath
CPT/HCPCS: 36415; 80048; 83036; 83735; 83880; 84443

== ENCOUNTER → 2019-04-07 | Outpatient (CLI) | payer OTHER ==
[2019-04-07 10:46] LABS: ABSOLUTE BASOPHILS # (AUTO) 0.1 10^3/uL (0.0-0.2); ABSOLUTE LYMPHOCYTES (AUTO) 1.4 10^3/uL (0.5-4.7); ABSOLUTE MONOCYTES (AUTO) 0.6 10^3/uL (0.1-1.4); ABSOLUTE NEUT (AUTO) 7.8 10^3/uL (1.7-8.2); BASOPHILS % (AUTO) 0.7 % (0-2); EOSINOPHILS % (AUTO) 0.3 % (0-6); HEMATOCRIT 39.8 % (37.9-51.0); HEMOGLOBIN 13.4 g/dL (13.5-17.0); MEAN CORPUSCULAR HEMOGLOBIN 30.3 pg (27.0-33.4); MEAN CORPUSCULAR HGB CONC 33.6 g/dL (32.0-36.0); MEAN CORPUSCULAR VOLUME 90 fl (80-97); MONOCYTES % (AUTO) 6.3 % (3-13); PLATELET COUNT 151 10^3/uL (150-450); RED BLOOD COUNT 4.41 10^6/uL (4.35-5.55); RED CELL DISTRIBUTION WIDTH 14.4 % (11.5-14.0); SEGMENTED NEUTROPHILS % (AUTO) 78.7 % (42-78); TOTAL CELLS COUNTED % (AUTO) 100 %; WHITE BLOOD COUNT 9.9 10^3/uL (4.0-10.5)
[2019-04-07 10:57] LABS: APPEARANCE,URINE CLEAR; BILIRUBIN,URINE NEGATIVE (NEGATIVE); COLOR,URINE YELLOW; GLUCOSE, URINE NEGATIVE (NEGATIVE); KETONES,URINE NEGATIVE (NEGATIVE); LEUKOCYTE ESTERASE,URINE NEGATIVE (NEGATIVE); NITRITE,URINE NEGATIVE (NEGATIVE); PROTEIN,URINE 100 mg/dL (NEGATIVE); URINE SPECIFIC GRAVITY 1.013; UROBILINOGEN,URINE NEGATIVE mg/dL (<2.0)
[2019-04-07 11:13] LABS: ALBUMIN 4.1 g/dL (3.5-5.0); ANION GAP 8 (5-19); BLOOD UREA NITROGEN 39 mg/dL (7-20); CALCIUM 10.2 mg/dL (8.4-10.2); CARBON DIOXIDE 29 mmol/L (22-30); CHLORIDE 106 mmol/L (98-107); GLUCOSE 109 mg/dL (75-110); PHOSPHORUS 3.2 mg/dL (2.5-4.5); SODIUM 142.7 mmol/L (137-145)
[2019-04-07 11:16] LABS: UR PRO/CREAT RATIO RESULT 0.6 mg/mg (0.0-0.2); URINE CREATININE 109.3 mg/dL (22-328); URINE PROTEIN 64.8 mg/dL (<12)
== END ==
LOC: OD 10:16
PROVIDERS: ATTEND Internal Medicine Nephrology
DX: I12.9 Hypertensive chronic kidney disease with stage 1 through stage 4 chronic kidney disease, or unspecified chronic kidney disease (principal); N18.4 Chronic kidney disease, stage 4 (severe); R80.9 Proteinuria, unspecified; E55.9 Vitamin D deficiency, unspecified
CPT/HCPCS: 36415; 80069; 81001; 82306; 82570; 83970; 84156; 85025

== ENCOUNTER → 2019-05-12 | Outpatient (CLI) | payer OTHER | LOC: OD 16:58 | PROVIDERS: ATTEND Internal Medicine Cardiovascular Disease | DX: E83.42 Hypomagnesemia (principal); Z79.899 Other long term (current) drug therapy | CPT/HCPCS: 36415; 83735 ==

== ENCOUNTER → 2019-07-06 | Outpatient (CLI) | payer OTHER ==
[2019-07-06 11:29] LABS: ANION GAP 10 (5-19); BLOOD UREA NITROGEN 36 mg/dL (7-20); CALCIUM 9.6 mg/dL (8.4-10.2); CARBON DIOXIDE 27 mmol/L (22-30); CHLORIDE 103 mmol/L (98-107); GLUCOSE 113 mg/dL (75-110); POTASSIUM 4.6 mmol/L (3.6-5.0); URIC ACID 7.6 mg/dL (3.5-8.5)
[2019-07-06 12:54] LABS: UR PRO/CREAT RATIO RESULT 0.2 mg/mg (0.0-0.2); URINE CREATININE 135.4 mg/dL (22-328); URINE PROTEIN 32.6 mg/dL (<12)
== END ==
LOC: OD 10:36
PROVIDERS: ATTEND Internal Medicine Nephrology
DX: I12.9 Hypertensive chronic kidney disease with stage 1 through stage 4 chronic kidney disease, or unspecified chronic kidney disease (principal); N18.3 Chronic kidney disease, stage 3 (moderate); N25.81 Secondary hyperparathyroidism of renal origin; R80.9 Proteinuria, unspecified
CPT/HCPCS: 36415; 80048; 82570; 83970; 84156; 84550

== ENCOUNTER → 2019-07-22 | Outpatient (CLI) | payer OTHER ==
[2019-07-22 10:16] LABS: ALBUMIN 4.2 g/dL (3.5-5.0); ALKALINE PHOSPHATASE 81 U/L (38-126); ANION GAP 11 (5-19); ASPARTATE AMINO TRANSFERASE 22 U/L (17-59); BILIRUBIN,DIRECT 0.2 mg/dL (0.0-0.4); BILIRUBIN,TOTAL 0.5 mg/dL (0.2-1.3); BLOOD UREA NITROGEN 36 mg/dL (7-20); CALCIUM 9.9 mg/dL (8.4-10.2); CARBON DIOXIDE 28 mmol/L (22-30); CHLORIDE 106 mmol/L (98-107); GLUCOSE 153 mg/dL (75-110); POTASSIUM 4.6 mmol/L (3.6-5.0); TOTAL PROTEIN 7.2 g/dL (6.3-8.2)
[2019-07-23 12:15] LABS: CHOLESTEROL 146.56 mg/dL (0-200); TRIGLYCERIDES 113 mg/dL (<150)
[2019-07-23 12:26] LABS: DIRECT LDL 87 mg/dL (<100)
[2019-07-24 08:57] LABS: CHOLESTEROL 162.52 mg/dL (0-200); TRIGLYCERIDES 158 mg/dL (<150)
[2019-07-24 09:04] LABS: VLDL CHOLESTEROL 31.6 mg/dL (10-31)
[2019-07-24 09:06] LABS: DIRECT LDL 85 mg/dL (<100)
== END ==
LOC: OD 08:08
PROVIDERS: ATTEND Internal Medicine Cardiovascular Disease
DX: E78.2 Mixed hyperlipidemia (principal); E11.9 Type 2 diabetes mellitus without complications; R00.2 Palpitations; R06.02 Shortness of breath; Z79.899 Other long term (current) drug therapy
CPT/HCPCS: 36415; 80048; 80061; 80076; 83036; 83735; 83880; 84443

== ENCOUNTER → 2019-10-25 | Outpatient (CLI) | payer OTHER ==
[2019-10-25 09:37] LABS: ABSOLUTE BASOPHILS # (AUTO) 0.1 10^3/uL (0.0-0.2); ABSOLUTE EOSINOPHILS # (AUTO) 0.1 10^3/uL (0.0-0.6); ABSOLUTE LYMPHOCYTES (AUTO) 0.8 10^3/uL (0.5-4.7); ABSOLUTE MONOCYTES (AUTO) 0.4 10^3/uL (0.1-1.4); BASOPHILS % (AUTO) 1.5 % (0-2); EOSINOPHILS % (AUTO) 1.8 % (0-6); HEMATOCRIT 39.5 % (37.9-51.0); HEMOGLOBIN 13.1 g/dL (13.5-17.0); LYMPHOCYTES % (AUTO) 18.1 % (13-45); MEAN CORPUSCULAR HGB CONC 33.1 g/dL (32.0-36.0); MEAN CORPUSCULAR VOLUME 88 fl (80-97); MONOCYTES % (AUTO) 9.2 % (3-13); PLATELET COUNT 178 10^3/uL (150-450); RED CELL DISTRIBUTION WIDTH 14.5 % (11.5-14.0); SEGMENTED NEUTROPHILS % (AUTO) 69.4 % (42-78); TOTAL CELLS COUNTED % (AUTO) 100 %; WHITE BLOOD COUNT 4.3 10^3/uL (4.0-10.5)
[2019-10-25 09:51] LABS: APPEARANCE,URINE CLEAR; BILIRUBIN,URINE NEGATIVE (NEGATIVE); COLOR,URINE YELLOW; GLUCOSE, URINE NEGATIVE (NEGATIVE); KETONES,URINE NEGATIVE (NEGATIVE); LEUKOCYTE ESTERASE,URINE NEGATIVE (NEGATIVE); NITRITE,URINE NEGATIVE (NEGATIVE); PROTEIN,URINE 30 mg/dL (NEGATIVE); UROBILINOGEN,URINE NEGATIVE mg/dL (<2.0)
[2019-10-25 09:58] LABS: ALBUMIN 4.1 g/dL (3.5-5.0); ANION GAP 11 (5-19); BLOOD UREA NITROGEN 22 mg/dL (7-20); CALCIUM 9.9 mg/dL (8.4-10.2); CARBON DIOXIDE 24 mmol/L (22-30); CHLORIDE 109 mmol/L (98-107); GLUCOSE 105 mg/dL (75-110); PHOSPHORUS 3.6 mg/dL (2.5-4.5); POTASSIUM 4.4 mmol/L (3.6-5.0)
[2019-10-25 10:04] LABS: UR PRO/CREAT RATIO RESULT 0.3 mg/mg (0.0-0.2); URINE CREATININE 91.2 mg/dL (22-328); URINE PROTEIN 31.9 mg/dL (<12)
== END ==
LOC: OD 09:07
PROVIDERS: ATTEND Internal Medicine Nephrology
DX: I12.9 Hypertensive chronic kidney disease with stage 1 through stage 4 chronic kidney disease, or unspecified chronic kidney disease (principal); N18.3 Chronic kidney disease, stage 3 (moderate); N25.81 Secondary hyperparathyroidism of renal origin; R80.9 Proteinuria, unspecified
CPT/HCPCS: 36415; 80069; 81001; 82306; 82570; 83970; 84156; 84550; 85025

== ENCOUNTER 2019-11-07 10:36 | Day surgery (SDC) | payer OTHER ==
[2019-11-07] MEDS ORDERED: PROPOFOL INJ 200 MG/20 ML VIAL IV ONE (11:40)
[2019-11-07] MEDS ORDERED: ALBUTEROL SULFATE 0.083% NEB 2.5 MG/3 ML AMPUL NEB ONE ×2 (12:18→13:30)
[2019-11-07] MEDS ORDERED: ONDANSETRON HCL INJ/PF 4 MG/2 ML SDV IV PRN (12:28)
--- NOTE | 2019-11-07 13:54 | EKG REPORT ---
SEVERITY:- ABNORMAL ECG - SINUS RHYTHM BORDERLINE LEFT AXIS DEVIATION NONSPECIFIC T ABNORMALITIES, INFERIOR LEADS : Confirmed by: Samson Morales MD 07-Nov-2019 13:53:37
--- NOTE | 2019-11-07 14:49 | Operative Report ---
Operative Report DATE OF SURGERY: 11/07/19 Operative Report: Risk, benefits and alternatives of the procedure including the risk of bleeding, perforation requiring surgery have been explained to the patient in detail and informed consent has been obtained. Patient is placed in a left, lateral decubital position. Timeout was called. Propofol medication is administered. Rectal examination is done which did not reveal any masses, tears or fissures. An Olympus videoscope was introduced into the patient's rectum. Scope was then carefully advanced all the way to the cecum. Cecum was identified by the usual anatomical landmarks of the ileocecal valve as well as the appendiceal office. Photodocumentation is obtained. Scope was then sequentially pulled back via the various segments of the colon including the ascending colon, hepatic flexure, transverse colon, splenic flexure, descending colon and finally into the rectosigmoid portions of the colon. Retroflexion maneuvers performed. The risks benefits and alternatives of the procedure explained to the patient in detail and informed consent is obtained.A GIF Olympus video scope was inserted into the patient's mouth and hypopharynx, the esophagus is identified intubated and insufflated, the scope was then advanced through the esophagus stomach and duodenum, retroflexion maneuver is done, the esophagus stomach and first and second portions of the duodenum examined. PREOPERATIVE DIAGNOSIS: Change in bowel habits. Dyspepsia POSTOPERATIVE DIAGNOSIS: Gastritis status post biopsy without Helicobacter pylori. Nodular lesion at the gastric side of the EG junction status post biopsy. Diverticulosis. Right colon inflammation status post biopsy. Internal hemorrhoids OPERATION: Colonoscopy with biopsy. EGD with biopsy SURGEON: LUZMA ROCHA ANESTHESIA: LMAC TISSUE REMOVED OR ALTERED: As noted above. COMPLICATIONS: None. ESTIMATED BLOOD LOSS: None. INTRAOPERATIVE FINDINGS: As noted above. PROCEDURE: Patient tolerated the procedure well. No immediate postprocedure complications are noted. Patient is discharged in good condition. Discharge date 11/07/2019. Discharge diet: Regular. Discharge activity: Regular. 2 to 3-week follow-up to discuss findings. Patient is instructed to call the office or proceed to the emergency room should there be any further problems or questions. Wait on the pathology. 5-year surveillance colonoscopy.
[2019-11-07 15:58] VITALS: BP 159/81
== END 2019-11-07 15:40 | disposition home or self-care (01) ==
LOC: OROUT 10:36
PROVIDERS: ATTEND Internal Medicine Gastroenterology
DX: K57.30 Diverticulosis of large intestine without perforation or abscess without bleeding (principal); K52.9 Noninfective gastroenteritis and colitis, unspecified; K64.8 Other hemorrhoids; K29.50 Unspecified chronic gastritis without bleeding; K22.8 Other specified diseases of esophagus; F17.210 Nicotine dependence, cigarettes, uncomplicated; E07.9 Disorder of thyroid, unspecified; N18.9 Chronic kidney disease, unspecified; D64.9 Anemia, unspecified; I25.2 Old myocardial infarction
CPT/HCPCS: 43239; 45380; 36415; 84132; 88342 ×2; 88305 ×2; 93005; 93010; 94640; 00813; J2704; 813

== ENCOUNTER → 2020-02-29 | Outpatient (CLI) | payer OTHER ==
[2020-02-29 10:15] LABS: ABSOLUTE BASOPHILS # (AUTO) 0.1 10^3/uL (0.0-0.2); ABSOLUTE EOSINOPHILS # (AUTO) 0.1 10^3/uL (0.0-0.6); ABSOLUTE LYMPHOCYTES (AUTO) 0.9 10^3/uL (0.5-4.7); ABSOLUTE MONOCYTES (AUTO) 0.4 10^3/uL (0.1-1.4); ABSOLUTE NEUT (AUTO) 3.2 10^3/uL (1.7-8.2); BASOPHILS % (AUTO) 1.2 % (0-2); EOSINOPHILS % (AUTO) 2.1 % (0-6); HEMATOCRIT 38.3 % (37.9-51.0); LYMPHOCYTES % (AUTO) 18.3 % (13-45); MEAN CORPUSCULAR HEMOGLOBIN 29.5 pg (27.0-33.4); MEAN CORPUSCULAR VOLUME 87 fl (80-97); MONOCYTES % (AUTO) 9.4 % (3-13); PLATELET COUNT 158 10^3/uL (150-450); RED BLOOD COUNT 4.42 10^6/uL (4.35-5.55); RED CELL DISTRIBUTION WIDTH 14.5 % (11.5-14.0); TOTAL CELLS COUNTED % (AUTO) 100 %; WHITE BLOOD COUNT 4.7 10^3/uL (4.0-10.5)
[2020-02-29 10:24] LABS: HEMATOCRIT 38.3 % (37.9-51.0); MEAN CORPUSCULAR HEMOGLOBIN 29.5 pg (27.0-33.4); MEAN CORPUSCULAR VOLUME 87 fl (80-97); PLATELET COUNT 158 10^3/uL (150-450); RED BLOOD COUNT 4.42 10^6/uL (4.35-5.55); RED CELL DISTRIBUTION WIDTH 14.5 % (11.5-14.0); WHITE BLOOD COUNT 4.7 10^3/uL (4.0-10.5)
[2020-02-29 10:33] LABS: ALBUMIN 4.3 g/dL (3.5-5.0); ALKALINE PHOSPHATASE 103 U/L (38-126); ANION GAP 9 (5-19); ASPARTATE AMINO TRANSFERASE 28 U/L (17-59); BILIRUBIN,TOTAL 0.6 mg/dL (0.2-1.3); BLOOD UREA NITROGEN 29 mg/dL (7-20); CALCIUM 9.6 mg/dL (8.4-10.2); CARBON DIOXIDE 24 mmol/L (22-30); CHLORIDE 107 mmol/L (98-107); CHOLESTEROL 123.98 mg/dL (0-200); GLUCOSE 107 mg/dL (75-110); POTASSIUM 4.5 mmol/L (3.6-5.0); TOTAL PROTEIN 7.4 g/dL (6.3-8.2); TRIGLYCERIDES 111 mg/dL (<150)
[2020-02-29 10:44] LABS: DIRECT LDL 72 mg/dL (<100)
[2020-02-29 10:47] LABS: UR PRO/CREAT RATIO RESULT 0.5 mg/mg (0.0-0.2); URINE PROTEIN 53.4 mg/dL (<12)
[2020-02-29 10:56] LABS: CALCIUM 9.6 mg/dL (8.4-10.2)
[2020-02-29 10:57] LABS: ANION GAP 9 (5-19); BLOOD UREA NITROGEN 29 mg/dL (7-20); CARBON DIOXIDE 24 mmol/L (22-30); CHLORIDE 107 mmol/L (98-107); GLUCOSE 107 mg/dL (75-110); POTASSIUM 4.5 mmol/L (3.6-5.0)
== END ==
LOC: OD 09:31
PROVIDERS: ATTEND Internal Medicine Nephrology
DX: I12.9 Hypertensive chronic kidney disease with stage 1 through stage 4 chronic kidney disease, or unspecified chronic kidney disease (principal); N18.3 Chronic kidney disease, stage 3 (moderate); E11.22 Type 2 diabetes mellitus with diabetic chronic kidney disease; D63.1 Anemia in chronic kidney disease; R80.9 Proteinuria, unspecified; N25.81 Secondary hyperparathyroidism of renal origin; R00.2 Palpitations; E78.2 Mixed hyperlipidemia; Z79.899 Other long term (current) drug therapy
CPT/HCPCS: 36415; 80048; 80061; 80076; 82570; 83036; 83735; 83880; 83970; 84156; 84443; 85025

== ENCOUNTER → 2020-07-25 | Outpatient (CLI) | payer OTHER ==
[2020-07-25 12:05] LABS: ALBUMIN 4.5 g/dL (3.5-5.0); ALKALINE PHOSPHATASE 118 U/L (38-126); ANION GAP 11 (5-19); ASPARTATE AMINO TRANSFERASE 35 U/L (17-59); BILIRUBIN,DIRECT 0.3 mg/dL (0.0-0.4); BILIRUBIN,TOTAL 0.7 mg/dL (0.2-1.3); BLOOD UREA NITROGEN 37 mg/dL (7-20); CALCIUM 9.6 mg/dL (8.4-10.2); CARBON DIOXIDE 24 mmol/L (22-30); CHLORIDE 108 mmol/L (98-107); CHOLESTEROL 123.95 mg/dL (0-200); GLUCOSE 113 mg/dL (75-110); POTASSIUM 4.9 mmol/L (3.6-5.0); TOTAL PROTEIN 7.6 g/dL (6.3-8.2); TRIGLYCERIDES 143 mg/dL (<150)
[2020-07-25 12:16] LABS: DIRECT LDL 57 mg/dL (<100)
== END ==
LOC: OD 10:16
PROVIDERS: ATTEND Internal Medicine Cardiovascular Disease
DX: I50.22 Chronic systolic (congestive) heart failure (principal); E78.2 Mixed hyperlipidemia; E11.9 Type 2 diabetes mellitus without complications; Z79.899 Other long term (current) drug therapy
CPT/HCPCS: 36415; 80048; 80061; 80076; 83036; 83880

== ENCOUNTER → 2020-10-25 | Outpatient (CLI) | payer OTHER ==
[2020-10-25 07:43] LABS: ABSOLUTE BASOPHILS # (AUTO) 0.1 10^3/uL (0.0-0.2); ABSOLUTE EOSINOPHILS # (AUTO) 0.1 10^3/uL (0.0-0.6); ABSOLUTE LYMPHOCYTES (AUTO) 1.2 10^3/uL (0.5-4.7); ABSOLUTE MONOCYTES (AUTO) 0.4 10^3/uL (0.1-1.4); ABSOLUTE NEUT (AUTO) 3.2 10^3/uL (1.7-8.2); BASOPHILS % (AUTO) 1.1 % (0-2); EOSINOPHILS % (AUTO) 1.5 % (0-6); HEMATOCRIT 39.1 % (37.9-51.0); HEMOGLOBIN 12.8 g/dL (13.5-17.0); LYMPHOCYTES % (AUTO) 23.4 % (13-45); MEAN CORPUSCULAR HEMOGLOBIN 28.1 pg (27.0-33.4); MEAN CORPUSCULAR HGB CONC 32.6 g/dL (32.0-36.0); MEAN CORPUSCULAR VOLUME 86 fl (80-97); MONOCYTES % (AUTO) 8.8 % (3-13); PLATELET COUNT 168 10^3/uL (150-450); RED BLOOD COUNT 4.54 10^6/uL (4.35-5.55); RED CELL DISTRIBUTION WIDTH 14.1 % (11.5-14.0); SEGMENTED NEUTROPHILS % (AUTO) 65.2 % (42-78); TOTAL CELLS COUNTED % (AUTO) 100 %
[2020-10-25 07:48] LABS: HEMATOCRIT 39.1 % (37.9-51.0); HEMOGLOBIN 12.8 g/dL (13.5-17.0); MEAN CORPUSCULAR HEMOGLOBIN 28.1 pg (27.0-33.4); MEAN CORPUSCULAR HGB CONC 32.6 g/dL (32.0-36.0); MEAN CORPUSCULAR VOLUME 86 fl (80-97); PLATELET COUNT 168 10^3/uL (150-450); RED BLOOD COUNT 4.54 10^6/uL (4.35-5.55); RED CELL DISTRIBUTION WIDTH 14.1 % (11.5-14.0)
[2020-10-25 08:09] LABS: ALBUMIN 4.1 g/dL (3.5-5.0); ALKALINE PHOSPHATASE 98 U/L (38-126); ANION GAP 7 (5-19); ASPARTATE AMINO TRANSFERASE 32 U/L (17-59); BILIRUBIN,DIRECT 0.2 mg/dL (0.0-0.4); BILIRUBIN,TOTAL 0.6 mg/dL (0.2-1.3); BLOOD UREA NITROGEN 46 mg/dL (7-20); CALCIUM 9.7 mg/dL (8.4-10.2); CARBON DIOXIDE 26 mmol/L (22-30); CHLORIDE 110 mmol/L (98-107); CHOLESTEROL 136.61 mg/dL (0-200); GLUCOSE 114 mg/dL (75-110); POTASSIUM 4.3 mmol/L (3.6-5.0); TRIGLYCERIDES 221 mg/dL (<150)
[2020-10-25 08:19] LABS: DIRECT LDL 56 mg/dL (<100)
[2020-10-25 08:23] LABS: VLDL CHOLESTEROL 44.2 mg/dL (10-31)
[2020-10-25 08:24] LABS: ERYTHROCYTE SEDIMENTATION RATE 22 mm/hr (0-20)
[2020-10-25 08:41] LABS: ALBUMIN 4.1 g/dL (3.5-5.0); ANION GAP 7 (5-19); BLOOD UREA NITROGEN 46 mg/dL (7-20); CALCIUM 9.7 mg/dL (8.4-10.2); CARBON DIOXIDE 26 mmol/L (22-30); CHLORIDE 110 mmol/L (98-107); GLUCOSE 114 mg/dL (75-110); PHOSPHORUS 3.7 mg/dL (2.5-4.5); POTASSIUM 4.3 mmol/L (3.6-5.0)
[2020-10-25 09:01] LABS: APPEARANCE,URINE CLEAR; BILIRUBIN,URINE NEGATIVE (NEGATIVE); COLOR,URINE STRAW; GLUCOSE, URINE NEGATIVE (NEGATIVE); KETONES,URINE NEGATIVE (NEGATIVE); PROTEIN,URINE 100 mg/dL (NEGATIVE); URINE SPECIFIC GRAVITY 1.011; UROBILINOGEN,URINE NEGATIVE mg/dL (<2.0)
[2020-10-25 09:30] LABS: UR PRO/CREAT RATIO RESULT 0.9 mg/mg (0.0-0.2); URINE CREATININE 70.8 mg/dL (22-328); URINE PROTEIN 64.8 mg/dL (<12)
== END ==
LOC: OD 07:13
PROVIDERS: ATTEND Internal Medicine Nephrology
DX: E78.2 Mixed hyperlipidemia (principal); I13.0 Hypertensive heart and chronic kidney disease with heart failure and stage 1 through stage 4 chronic kidney disease, or unspecified chronic kidney disease; I50.22 Chronic systolic (congestive) heart failure; N18.30 Chronic kidney disease, stage 3 unspecified; D63.1 Anemia in chronic kidney disease; D86.85 Sarcoid myocarditis; I47.2 Ventricular tachycardia; R80.1 Persistent proteinuria, unspecified; E21.1 Secondary hyperparathyroidism, not elsewhere classified; Z79.899 Other long term (current) drug therapy
CPT/HCPCS: 36415; 80048; 80061; 80069; 80076; 81001; 82306; 82570; 83880; 83970; 84156; 84443; 85027; 85652